=== PATIENT | female | born 1985 | race Caucasian/White ===

== ENCOUNTER → 2019-08-14 | Outpatient (CLI) | payer SELFPAY | PROVIDERS: Family Provider Nurse Practitioner Family; Visit Provider Nurse Practitioner Family | DX: D69.6 Thrombocytopenia, unspecified (principal) | CPT/HCPCS: 36415; 80500; 85007; 85027 ==

== ENCOUNTER 2020-04-03 13:58 | Outpatient (CLI) | payer MEDICAID, SELFPAY ==
--- NOTE | 2020-04-03 14:10 | XR_ITS ---
WS: [id number] EXAM: PA CHEST X-RAY WITH ABDOMINAL OBSTRUCTIVE SERIES DATE OF EXAMINATION: 04/03/2020, 1423 hours COMPARISON: Abdominal KUB from 08/20/2009 and chest x-ray from 04/07/2010 HISTORY: Patient is 34 years old with hematuria FINDINGS: Again demonstrated are postop sternotomy changes with valve replacement. Considered to be the aortic valve. Heart size and the mediastinal contour otherwise similar and within normal limits. Pulmonary v ascularity is normal. Lungs are clear of infiltrate. No effusion or pneumothorax. The bowel gas pattern is normal. Moderate amount of stool. There are findings suggesting a calcificat ion to the right of the spine possibly in the right ureter L4-5 level estimated at 4.7 mm in transver se diameter and 7 mm in vertical height. Additional suspected punctate calcification overlying the ri ght mid kidney. Calcification overlying the left kidney silhouette or course of the left ureter or di stal right ureter. XR/XR acute abdomen series [id number] IMPRESSION: Possible calcification in the right ureter L4-5 level. Additional punctate calc ification overlying the right kidney silhouette about 2 mm in size. No acute pulmonary disease. Normal bowel gas pattern with moderate amount of st ool.
== END 2020-04-03 13:59 | disposition home or self-care (01) ==
LOC: RADWPI 14:01
PROVIDERS: PCP Nurse Practitioner Family; Visit Provider Nurse Practitioner Family
DX: R31.9 Hematuria, unspecified (principal); N20.0 Calculus of kidney
CPT/HCPCS: 74022

== ENCOUNTER 2020-04-23 16:19 | Emergency (ER) | payer MEDICAID, SELFPAY ==
[2020-04-23 16:49] VITALS: BP 143/101; PULSE 66; RESP 18; TEMP 36.6; O2SAT 99; BMI 26.6
--- NOTE | 2020-04-23 17:04 | W.ED.ABDPA2 ---
Documented by User: Erik Polk DO 04/25/20 09:15 HPI - Abdominal Pain General: Chief Complaint: Abdominal Pain Stated Complaint: chest pain/abd and back pain Time Seen by Provider: 04/23/20 16:50 History of Present Illness: HPI narrative: 34-year-old female presents complaining of right upper chest pain right upper quadrant pain radiating to her back. Most of her pain starts in the right upper quadrant radiates around to the back and up into the right shoulder. She not been short of breath with it she is not had any dysuria urgency or frequency denies any fever she is not noticed anything that seems to trigger or relieve it. 2 weeks ago interestingly she had some hematuria they thought she had nephrolithiasis I did a KUB put her on some Flomax it seemed to pass and hematuria stopped they assume she had passed a stone but she never did catch 1 any urine filter. She is on Coumadin because she has a [employer]. 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 She not had any respiratory symptoms denies any exposure to COVID. MD elicited complaint: abdominal pain Pertinent past history: other (Recent possible nephrolithiasis) Onset (ago): day(s) Pain Consistency: constant Location: RUQ Quality: cramping and stabbing Radiation: other (Right shoulder) Migration to: other (The back) Exacerbating factors: nothing Relieving factors: nothing Associated Symptoms: Reports anorexia, bloating and GI cramping; Denies change in bowel habits, change in stool character, chills, coffee ground emesis, constipation, diarrhea, dyspepsia, dysuria, excessive flatus, fever(s), heartburn, hematochezia, hematuria, hematemesis, fecal incontinence, loose stools, melena, nausea, poor appetite, syncope and vomiting Review of Systems Const: Denies: fever(s) or chills ENMT: Denies: throat pain, ear or mastoid pain, nasal discharge or nasal congestion Card: Denies: syncope Resp: Denies: dyspnea, productive cough or non-productive cough GI: Reports: bloating and GI cramping; Denies: nausea, vomiting, hematemesis, coffee ground emesis, heartburn, diarrhea, constipation, excessive flatus, fecal incontinence, change in bowel habits, change in stool character, hematochezia or melena : Denies: dysuria or hematuria Skin/Breast: Denies: rash or pruritus PFSH ED PFSH: Medical History Hepatitis C Subacute bacterial endocarditis Surgical History History of History of mitral valve prosthesis St. Octavio's mechanical valve S/P endometrial ablation Social History Smoking and tobacco status: light tobacco smoker cigarettes Alcohol intake: current Alcohol intake frequency: few times a month Substance/Drug Use: former Date of last use: History of IV drug use quit several years ago Physical Exam Const: COMMON NORMALS: average body habitus, patient oriented x3 and alert GENERAL APPEARANCE: cooperative, comfortable, well kempt and well developed NUTRITIONAL APPEARANCE: obese ORIENTATION/CONSCIOUSNESS: Yes awake, Yes oriented to person and Yes oriented to place HENMT: COMMON NORMALS: normocephalic, atraumatic and EAC's normal HEAD & SCALP: normocephalic and atraumatic EXTERNAL AUDITORY CANAL: EAC's normal Eye: COMMON NORMALS: Equal, round and reactive pupils present, EOMs intact bilaterally, conjunctivae normal and no scleral icterus CONJUNCTIVA: Yes conjunctivae normal PUPIL: Yes Equal, round and reactive pupils present Neck/C-Spine: COMMON NORMALS: no meningeal signs Resp: COMMON NORMALS: normal respiratory effort, No retractions, No use of accessory muscles and clear to auscultation bilaterally AUSCULTATION: clear to auscultation bilaterally Cardio: COMMON NORMALS: regular rate and regular rhythm RATE: regular rate RHYTHM: regular rhythm HEART SOUNDS: no murmurs GI: COMMON NORMALS: Normal to inspection, nondistended, normoactive bowel sounds present, Soft to palpation and No hepatosplenomegaly present PALPATION: Yes Soft to palpation, Yes Tenderness to palpation present (GI) Details: RUQ and Yes No hepatosplenomegaly present : COMMON NORMALS: Yes no CVA tenderness BLADDER/KIDNEY EXAM: Yes no CVA tenderness Back/Pelvis: COMMON NORMALS: no CVA tenderness LUMBAR SPINE/LOWER BACK: Yes normal to inspection Extremity: COMMON NORMALS: no clubbing, cyanosis or edema, no calf tenderness and no pedal edema Neuro: COMMON NORMALS: patient oriented x3 SENSORIUM/ORIENTATION: Yes alert, Yes oriented to person and Yes oriented to place MENINGEAL SIGNS: Yes no meningeal signs Psych: APPEARANCE: Yes well kempt Skin: COMMON NORMALS: no rashes or lesions noted and turgor normal GENERAL SKIN EXAM: no rashes or lesions noted and turgor normal Course Vital Signs: Vital signs: Vital Signs Temperature 97.8 F 04/23/20 16:49 Pulse Rate 60 04/23/20 19:55 Respiratory Rate 21 H 04/23/20 19:55 Blood Pressure 125/70 04/23/20 19:55 Pulse Oximetry 97 04/23/20 19:55 MDM - Abdominal Pain MDM Narrative: Medical decision making narrative: Return to Dr. Kuo at change of shift see his notes for final diagnosis and disposition. Lab Data: Labs: Lab Results 04/23/20 04/23/20 04/23/20 Range/Units 17:13 17:13 17:13 WBC 6.9 (4.0-10.0) 10^3/ uL RBC 5.07 (4.1-5.3) 10^6/u L Hgb 15.3 (11.5-15.3) g/dL Hct 46.3 (37.0-47.0) % MCV 91.3 (81-99) fL MCH 30.2 (28.0-34.0) pg MCHC 33.0 (30.0-36.0) g/dL RDW 13.2 (12.1-15.1) % Plt Count 139 (130-400) 10^3/c mm MPV 12.5 H (7.4-10.4) fL Neut % (Auto) 62.1 % Lymph % (Auto) 25.4 % [place] % (Auto) 7.6 % Eos % (Auto) 4.2 % Baso % (Auto) 0.4 % Neut # (Auto) 4.31 (1.8-7.7) 10^3/u L Lymph # (Auto) 1.8 (0.8-4.8) 10^3/u L [place] # (Auto) 0.5 (0.2-0.9) 10^3/u L Eos # (Auto) 0.3 (0.0-0.8) 10^3/u L Baso # (Auto) 0.0 (0.0-0.1) 10^3/u L Nucleated RBC % (a uto) 0 % Nucleated RBCs # 0.0 /100WBC PT 31.00 H (12.1-14.9) SECO NDS INR 2.85 H (0.8-1.2) Sodium 136 (136-145) mmol/L Potassium 4.0 (3.5-5.1) mmol/L Chloride 103 (98-107) mmol/L Carbon Dioxide 24 (22-29) mmol/L Anion Gap 13.0 (5-19) BUN 9 (6-20) mg/dL Creatinine 0.6 (0.5-0.9) mg/dL GFR Calculation 115.9 (90-130) mL/min Glucose 99 (65-115) mg/dL Calculated Osmolal ity 278 L (285-295) mOsm/k g Calcium 9.2 (8.5-10.5) mg/dL Total Bilirubin 0.9 (0.15-1.2) mg/dL AST 24 (0-32) U/L ALT 15 (0-33) U/L Alkaline Phosphata se 90 (35-105) IU/L Total Protein 7.5 (6.6-8.7) g/dL Albumin 4.3 (3.5-5.2) g/dL Globulin 3.2 (1.3-4.6) g/dL Lipase 26 (13-60) U/L HCG, Qual (Negative) Urine Color (Yellow) Urine Appearance (CLEAR) Urine pH (5-7) Ur Specific Gravit y (1.005-1.030) Urine Protein (Negative) Urine Glucose (UA) (Normal) Urine Ketones (Negative) Urine Blood (Negative) Urine Nitrate (Negative) Urine Bilirubin (Negative) Urine Urobilinogen (Negative) mg/dL Ur Leukocyte Madina ase (Negative) 04/23/20 04/23/20 Range/Units 17:18 17:18 WBC (4.0-10.0) 10^3/ uL RBC (4.1-5.3) 10^6/u L Hgb (11.5-15.3) g/dL Hct (37.0-47.0) % MCV (81-99) fL MCH (28.0-34.0) pg MCHC (30.0-36.0) g/dL RDW (12.1-15.1) % Plt Count (130-400) 10^3/c mm MPV (7.4-10.4) fL Neut % (Auto) % Lymph % (Auto) % [place] % (Auto) % Eos % (Auto) % Baso % (Auto) % Neut # (Auto) (1.8-7.7) 10^3/u L Lymph # (Auto) (0.8-4.8) 10^3/u L [place] # (Auto) (0.2-0.9) 10^3/u L Eos # (Auto) (0.0-0.8) 10^3/u L Baso # (Auto) (0.0-0.1) 10^3/u L Nucleated RBC % (a uto) % Nucleated RBCs # /100WBC PT (12.1-14.9) SECO NDS INR (0.8-1.2) Sodium (136-145) mmol/L Potassium (3.5-5.1) mmol/L Chloride (98-107) mmol/L Carbon Dioxide (22-29) mmol/L Anion Gap (5-19) BUN (6-20) mg/dL Creatinine (0.5-0.9) mg/dL GFR Calculation (90-130) mL/min Glucose (65-115) mg/dL Calculated Osmolal ity (285-295) mOsm/k g Calcium (8.5-10.5) mg/dL Total Bilirubin (0.15-1.2) mg/dL AST (0-32) U/L ALT (0-33) U/L Alkaline Phosphata se (35-105) IU/L Total Protein (6.6-8.7) g/dL Albumin (3.5-5.2) g/dL Globulin (1.3-4.6) g/dL Lipase (13-60) U/L HCG, Qual Negative (Negative) Urine Color Yellow (Yellow) Urine Appearance Clear (CLEAR) Urine pH 6.0 (5-7) Ur Specific Gravit y 1.010 (1.005-1.030) Urine Protein Neg (Negative) Urine Glucose (UA) Norm (Normal) Urine Ketones Negative (Negative) Urine Blood Neg (Negative) Urine Nitrate Negative (Negative) Urine Bilirubin Neg (Negative) Urine Urobilinogen Norm (Negative) mg/dL Ur Leukocyte Madina ase Negative (Negative) Discharge Plan Discharge Patient Disposition: Home Clinical Impression: Abdominal pain Qualifiers: Abdominal location: generalized Qualified Code(s): R10.84 - Generalized abdominal pain Condition: Stable Prescriptions: New Protonix 40 mg tablet,delayed release (DR/EC) 40 mg PO DAILY Qty: 30 RF: 0 No Action citalopram 20 mg tablet 20 mg PO DAILY RF: 0 warfarin 5 mg tablet See Rx Instructions .ROUTE .COMPLEX RF: 0 Multiple Vitamin-Minerals Tablet 1 tab PO DAILY RF: 0 Discharge Orders: Discharge Order (Routine); Ordered 04/23/20 Ordered By: Lv Kuo Referrals: Gabi Duran APN [Primary Care Provider] - Miky Logan MD [Physician] - 1-3 days Discharge Diet: Advance as tolerated Discharge Activity: Resume usual activity Patient Instructions: Abdominal Pain (ED) Discharge Date/Time: 04/23/20 19:55 Coding Level of Care Code ED Dispatcher Service for Chg Fwd Exam Comprehensive Documented by User: Lv Kuo MD 04/23/20 19:49 HPI - Abdominal Pain General: Chief Complaint: Abdominal Pain Stated Complaint: chest pain/abd and back pain Time Seen by Provider: 04/23/20 16:50 PFSH ED PFSH: Medical History Hepatitis C Subacute bacterial endocarditis Surgical History History of History of mitral valve prosthesis St. Octavio's mechanical valve S/P endometrial ablation Social History Smoking and tobacco status: light tobacco smoker cigarettes Alcohol intake: current Alcohol intake frequency: few times a month Substance/Drug Use: former Date of last use: History of IV drug use quit several years ago Course Vital Signs: Vital signs: Vital Signs Temperature 97.8 F 04/23/20 16:49 Pulse Rate 60 04/23/20 19:55 Respiratory Rate 21 H 04/23/20 19:55 Blood Pressure 125/70 04/23/20 19:55 Pulse Oximetry 97 04/23/20 19:55 MDM - Abdominal Pain MDM Narrative: Medical decision making narrative: Patient presents here with abdominal pain blood work here is normal and she has a normal ultrasound as well. Pain is improved. We will place her on Protonix and her follow-up with surgery. Patient is stable for discharge and is to follow-up with PCP in 3 to 5 days return if worsening. Lab Data: Labs: Lab Results 04/23/20 04/23/20 04/23/20 Range/Units 17:13 17:13 17:13 WBC 6.9 (4.0-10.0) 10^3/ uL RBC 5.07 (4.1-5.3) 10^6/u L Hgb 15.3 (11.5-15.3) g/dL Hct 46.3 (37.0-47.0) % MCV 91.3 (81-99) fL MCH 30.2 (28.0-34.0) pg MCHC 33.0 (30.0-36.0) g/dL RDW 13.2 (12.1-15.1) % Plt Count 139 (130-400) 10^3/c mm MPV 12.5 H (7.4-10.4) fL Neut % (Auto) 62.1 % Lymph % (Auto) 25.4 % [place] % (Auto) 7.6 % Eos % (Auto) 4.2 % Baso % (Auto) 0.4 % Neut # (Auto) 4.31 (1.8-7.7) 10^3/u L Lymph # (Auto) 1.8 (0.8-4.8) 10^3/u L [place] # (Auto) 0.5 (0.2-0.9) 10^3/u L Eos # (Auto) 0.3 (0.0-0.8) 10^3/u L Baso # (Auto) 0.0 (0.0-0.1) 10^3/u L Nucleated RBC % (a uto) 0 % Nucleated RBCs # 0.0 /100WBC PT 31.00 H (12.1-14.9) SECO NDS INR 2.85 H (0.8-1.2) Sodium 136 (136-145) mmol/L Potassium 4.0 (3.5-5.1) mmol/L Chloride 103 (98-107) mmol/L Carbon Dioxide 24 (22-29) mmol/L Anion Gap 13.0 (5-19) BUN 9 (6-20) mg/dL Creatinine 0.6 (0.5-0.9) mg/dL GFR Calculation 115.9 (90-130) mL/min Glucose 99 (65-115) mg/dL Calculated Osmolal ity 278 L (285-295) mOsm/k g Calcium 9.2 (8.5-10.5) mg/dL Total Bilirubin 0.9 (0.15-1.2) mg/dL AST 24 (0-32) U/L ALT 15 (0-33) U/L Alkaline Phosphata se 90 (35-105) IU/L Total Protein 7.5 (6.6-8.7) g/dL Albumin 4.3 (3.5-5.2) g/dL Globulin 3.2 (1.3-4.6) g/dL Lipase 26 (13-60) U/L HCG, Qual (Negative) Urine Color (Yellow) Urine Appearance (CLEAR) Urine pH (5-7) Ur Specific Gravit y (1.005-1.030) Urine Protein (Negative) Urine Glucose (UA) (Normal) Urine Ketones (Negative) Urine Blood (Negative) Urine Nitrate (Negative) Urine Bilirubin (Negative) Urine Urobilinogen (Negative) mg/dL Ur Leukocyte Madina ase (Negative) 04/23/20 04/23/20 Range/Units 17:18 17:18 WBC (4.0-10.0) 10^3/ uL RBC (4.1-5.3) 10^6/u L Hgb (11.5-15.3) g/dL Hct (37.0-47.0) % MCV (81-99) fL MCH (28.0-34.0) pg MCHC (30.0-36.0) g/dL RDW (12.1-15.1) % Plt Count (130-400) 10^3/c mm MPV (7.4-10.4) fL Neut % (Auto) % Lymph % (Auto) % [place] % (Auto) % Eos % (Auto) % Baso % (Auto) % Neut # (Auto) (1.8-7.7) 10^3/u L Lymph # (Auto) (0.8-4.8) 10^3/u L [place] # (Auto) (0.2-0.9) 10^3/u L Eos # (Auto) (0.0-0.8) 10^3/u L Baso # (Auto) (0.0-0.1) 10^3/u L Nucleated RBC % (a uto) % Nucleated RBCs # /100WBC PT (12.1-14.9) SECO NDS INR (0.8-1.2) Sodium (136-145) mmol/L Potassium (3.5-5.1) mmol/L Chloride (98-107) mmol/L Carbon Dioxide (22-29) mmol/L Anion Gap (5-19) BUN (6-20) mg/dL Creatinine (0.5-0.9) mg/dL GFR Calculation (90-130) mL/min Glucose (65-115) mg/dL Calculated Osmolal ity (285-295) mOsm/k g Calcium (8.5-10.5) mg/dL Total Bilirubin (0.15-1.2) mg/dL AST (0-32) U/L ALT (0-33) U/L Alkaline Phosphata se (35-105) IU/L Total Protein (6.6-8.7) g/dL Albumin (3.5-5.2) g/dL Globulin (1.3-4.6) g/dL Lipase (13-60) U/L HCG, Qual Negative (Negative) Urine Color Yellow (Yellow) Urine Appearance Clear (CLEAR) Urine pH 6.0 (5-7) Ur Specific Gravit y 1.010 (1.005-1.030) Urine Protein Neg (Negative) Urine Glucose (UA) Norm (Normal) Urine Ketones Negative (Negative) Urine Blood Neg (Negative) Urine Nitrate Negative (Negative) Urine Bilirubin Neg (Negative) Urine Urobilinogen Norm (Negative) mg/dL Ur Leukocyte Madina ase Negative (Negative) Discharge Plan Discharge Patient Disposition: Home Clinical Impression: Abdominal pain Qualifiers: Abdominal location: generalized Qualified Code(s): R10.84 - Generalized abdominal pain Condition: Stable Prescriptions: New Protonix 40 mg tablet,delayed release (DR/EC) 40 mg PO DAILY Qty: 30 RF: 0 No Action citalopram 20 mg tablet 20 mg PO DAILY RF: 0 warfarin 5 mg tablet See Rx Instructions .ROUTE .COMPLEX RF: 0 Multiple Vitamin-Minerals Tablet 1 tab PO DAILY RF: 0 Discharge Orders: Discharge Order (Routine); Ordered 04/23/20 Ordered By: Lv Kuo Referrals: Gabi Duran APN [Primary Care Provider] - Miky Logan MD [Physician] - 1-3 days Discharge Diet: Advance as tolerated Discharge Activity: Resume usual activity Patient Instructions: Abdominal Pain (ED) Discharge Date/Time: 04/23/20 19:55 Coding Level of Care Code ED Dispatcher Service for Chg Fwd Exam Comprehensive
[2020-04-23 17:18] LABS: Basophils % 0.4 %; Eosinophils # 0.3 10^3/uL (0.0-0.8); Eosinophils % 4.2 %; Hematocrit 46.3 % (37.0-47.0); Hemoglobin 15.3 g/dL (11.5-15.3); Lymphocytes # 1.8 10^3/uL (0.8-4.8); Lymphocytes % 25.4 %; Mean Corpuscular Hemoglobin 30.2 pg (28.0-34.0); Mean Corpuscular Volume 91.3 fL (81-99); Mean Platelet Volume 12.5 fL (7.4-10.4); Monocytes # 0.5 10^3/uL (0.2-0.9); Monocytes % 7.6 %; Neutrophils # 4.31 10^3/uL (1.8-7.7); Neutrophils % 62.1 %; Nucleated Red Blood Cells % 0 %; Platelet Count 139 10^3/cmm (130-400); Red Blood Count 5.07 10^6/uL (4.1-5.3); Red Cell Distribution Width 13.2 % (12.1-15.1); White Blood Count 6.9 10^3/uL (4.0-10.0)
[2020-04-23 17:26] LABS: Add Urine Microscopic? NO
[2020-04-23 17:28] LABS: Bilirubin Urine Neg (Negative); Blood Urine Neg (Negative); Glucose Urine UA Norm (Normal); Ketones Urine Negative (Negative); Leukocyte Esterase Urine Negative (Negative); Nitrate Urine Negative (Negative); Protein Urine Neg (Negative); Urine Appearance Clear (CLEAR); Urine Color Yellow (Yellow); Urobilinogen Urine Norm (Negative)
[2020-04-23 17:38] LABS: Alanine Aminotransferase 15 U/L (0-33); Albumin Level 4.3 g/dL (3.5-5.2); Alkaline Phosphatase 90 IU/L (35-105); Aspartate Amino Transferase 24 U/L (0-32); Blood Urea Nitrogen 9 mg/dL (6-20); Calcium 9.2 mg/dL (8.5-10.5); Carbon Dioxide 24 mmol/L (22-29); Chloride 103 mmol/L (98-107); Globulin 3.2 g/dL (1.3-4.6); Glomerular Filtration Rate 115.9 mL/min (90-130); Glucose 99 mg/dL (65-115); Lipase 26 U/L (13-60); Osmolality Calculated 278 mOsm/kg (285-295); Sodium 136 mmol/L (136-145); Total Bilirubin 0.9 mg/dL (0.15-1.2); Total Protein 7.5 g/dL (6.6-8.7)
--- NOTE | 2020-04-23 17:38 | USR_ITS ---
PROCEDURE INFORMATION: Exam: US Abdomen, Limited; Right Upper Quadrant Exam date and time: 04/23/2020 7:09 PM Age: 34 years old Clinical indication: Abdominal pain; Acute; Additional info: Ruq pain TECHNIQUE: Imaging protocol: US abdomen. Real time ultrasound with image documentation. Limited exam focused on the right upper quadrant. COMPARISON: CT Abdomen/Pelvis Renal [id number] 02/26/2015 7:47 PM FINDINGS: Liver: The liver is unremarkable. Gallbladder: The gallbladder is unremarkable. No gallstones or intraluminal sludge. No gallbladder wall thickening. No pericholecystic fluid. Sonographic Jones's sign is negative per report from the staff nuclear medicine technologist. Common bile duct: Unremarkable as visualized. No stones. No dilatation. Pancreas: The pancreas is unremarkable. No pancreatic ductal dilatation. Right kidney: The right kidney is unremarkable. Aorta: Visualized aorta is unremarkable. Portal venous: Hepatopetal flow in the portal vein. Inferior vena cava: Visualized IVC is unremarkable. Intraperitoneal space: No ascites. US/US gall bladder [id number] IMPRESSION: Unremarkable right upper quadrant ultrasound.
--- NOTE | 2020-04-23 17:40 | XR_ITS ---
WS: [id number] Portable AP upright chest, 04/23/2020 Clinical Data: dyspnea/cough Comparison: Portable chest, 04/07/2010. Findings: No nodules, masses or effusions are seen. The heart is slightly enlarged. The pulmonary vas cularity is not increased. No pneumonia or pneumothorax is seen. The patient has had cardiac valve re placement with midline sternotomy sutures. XR/XR chest 1V portable [id number] Impression: Cardiomegaly and cardiac valve replacement.
[2020-04-23 17:46] LABS: INR 2.85 (0.8-1.2)
[2020-04-23 17:52] VITALS: BP 115/66; PULSE 56; RESP 15; O2SAT 98
[2020-04-23] MEDS: sodium chloride 0.9% 1,000 ML 999 ML IV (17:53)
[2020-04-23] MEDS: ondansetron 2 mg/ML SDV 2 mL 4 MG IVP (18:10)
[2020-04-23] MEDS: morphine 4 mg/mL SDV 1 mL IVP (18:11)
[2020-04-23 19:04] VITALS: BP 128/80; PULSE 56; RESP 19; O2SAT 97
[2020-04-23 19:16] LABS: HCG Qualitative Urine. Negative (Negative)
[2020-04-23 19:46] VITALS: BP 125/70; PULSE 63; RESP 17; O2SAT 100
[2020-04-23 19:55] VITALS: BP 125/70; PULSE 60; RESP 21; O2SAT 97
--- NOTE | 2020-04-25 09:00 | DCPLANNER ---
youth manager had message to schedule a follow up appointment for patient with Dr. Logan. youth manager called the office of Dr. Logan, spoke with Ericka, gave clinic patients information. A follow up appointment was scheduled for Wednesday, May 20, 2020 at 9:[address] Logan. Clinic will call patient with appointment information, returned case inspector faxed patients information to the clinic.
--- NOTE | 2020-05-27 11:35 | DCPLANNER ---
Patient had a follow up appointment scheduled for 05.20.[address] Logan - appointment was rescheduled.
== END 2020-04-23 19:55 | disposition home or self-care (01) ==
PROVIDERS: Family Medicine; Emergency Provider Emergency Medicine; PCP Nurse Practitioner Family
DX: R10.84 Generalized abdominal pain (principal); Z79.01 Long term (current) use of anticoagulants; Z86.19 Personal history of other infectious and parasitic diseases; F17.210 Nicotine dependence, cigarettes, uncomplicated
CPT/HCPCS: 12345; 36415; 71045; 76705; 80053; 81003; 81025; 83690; 85025; 85610; 96361; 96374; 96375; 99283; 99284; J2270; J2405; J7030

== ENCOUNTER 2020-05-05 08:33 | Outpatient (CLI) | payer MEDICAID, SELFPAY ==
--- NOTE | 2020-05-05 07:30 | XRR_ITS ---
PROCEDURE INFORMATION: Exam: XR Abdomen, 1 View Exam date and time: 05/05/2020 8:50 AM Age: 34 years old Clinical indication: Condition or disease; Kidney or ureter condition; Calculus (stone) in kidney; Prior surgery; Surgery type: Open heart 10 years ago; Additional info: Kidney stone TECHNIQUE: Imaging protocol: XR of the abdomen. Views: Frontal supine view of the abdomen. 1 View. COMPARISON: 1. CR XR acute abdomen series [id number] 04/03/2020 2:[address] Abdomen/Pelvis Renal [id number] 02/26/2015 7:47:28 PM FINDINGS: Gastrointestinal tract: There is mildly increased stool noted in the ascending and transverse colon. Organs: Right renal lower pole 6.6 mm calyceal calculus. Bones/joints: No acute abnormality identified. XR/XR KUB [id number] IMPRESSION: 1. Right renal calyceal lithiasis. 2. Mild abdominal colonic constipation.
== END 2020-05-05 08:34 | disposition home or self-care (01) ==
LOC: RAD 08:37
PROVIDERS: PCP Nurse Practitioner Family; Visit Provider Nurse Practitioner Family
DX: N20.0 Calculus of kidney (principal); K59.00 Constipation, unspecified
CPT/HCPCS: 74018; 80053; 81001; 88112

== ENCOUNTER 2020-05-08 11:09 | Outpatient (CLI) | payer MEDICAID, SELFPAY ==
--- NOTE | 2020-05-08 12:30 | CT_ITS ---
WS: [id number] CT ABDOMEN PELVIS TECHNIQUE: Noncontrast CT of the abdomen and contrast-enhanced CT of the abdomen and pelvis with tutu nal and sagittal reformatted images. CLINICAL INFORMATION: GROSS HEMATURIA COMPARISON: 02 26,015 DLP: 2233.[address] scans at [facility] use at least one of these dose optimization techniques: automat ed exposure control; mA and/or kV adjustment per patient size (includes targeted exams where dose is matched to clinical indication); or iterative reconstruction. FINDINGS: Liver is normal in appearance. Normal portal vein and splenic vein. Gallbladder is contracted. Normal spleen. Lung bases are well aerated. Normal visualized pancreas. Normal GE junction. Adrenal glands are normal. Normal renal parenchymal enhancement. No hydronephrosis. Right renal pelvi c calculus measuring 4.6 mm without evidence of obstruction. Mild dilatation of the right proximal an d mid ureter which appears decompressed distally. A few tiny right calyceal tip nonobstructing calcul i. No left renal parenchymal or ureteral calculi. Bilateral ovarian cysts the largest in the right measuring 3.1 x 2.3 cm. This can be followed up with ultrasound. Normal corticomedullary phase. Normal left ureteral excretion. Normal right ureteral excretion into t he mid ureter. No visualized contrast in distal right ureter. This may be partially obstructed by the lobulated right ovarian cyst. Normal bladder filling. Normal sigmoid colon. No evidence of small or large bowel obstruction. Lung bases are well aerated. M ild lumbar curve convex left. CT/CT abdomen pelvis wo/w [id number] IMPRESSION: 1. 4.6 mm right renal pelvic calculus without evidence of obstruction. No hydr onephrosis. Mild dilatation of the right proximal and mid ureter may be due to recently passed calculus or partial obstruction by the right ovarian cyst. 2. Normal cortical medullary phase and normal excretion. Normal filling of the bladder. No significant contrast in the right distal ureter although it appear s normal caliber. 3. Lobulated right ovarian cyst measuring 3.1 x 2.3 cm. This is near the right UVJ and may be compressing the right ureter. 4. No other significant findings.
== END 2020-05-08 11:10 | disposition home or self-care (01) ==
LOC: CT 11:10
PROVIDERS: PCP Nurse Practitioner Family; Visit Provider Nurse Practitioner Family
DX: R31.0 Gross hematuria (principal); N20.0 Calculus of kidney; N83.201 Unspecified ovarian cyst, right side
CPT/HCPCS: 74178; 81001; Q9967

== ENCOUNTER 2020-05-23 08:37 | Outpatient (CLI) | payer MEDICAID, SELFPAY ==
--- NOTE | 2020-05-23 08:15 | XR_ITS ---
WS: [id number] KUB, 05/23/2020 Clinical Data: RENAL STONE Comparison: KUB, 05/05/2020. Findings: The calcification overlying the right kidney appears to be smaller today. No left renal calculus is s een. Both kidneys are slightly obscured by overlying bowel gas. The pelvis shows no calcifications. T he bladder is partly full. XR/XR KUB [id number] Impression: 1. Right renal calcification appears to be smaller. 2. No definite left renal, ureteral or true pelvic calcifications.
== END 2020-05-23 08:38 | disposition home or self-care (01) ==
LOC: RAD 08:39
PROVIDERS: PCP Nurse Practitioner Family; Visit Provider Urology
DX: N20.0 Calculus of kidney (principal)
CPT/HCPCS: 74018; 81001

== ENCOUNTER 2021-03-07 17:17 | Outpatient (CLI) | payer MEDICAID, SELFPAY ==
--- NOTE | 2021-03-07 17:29 | XRR_ITS ---
PROCEDURE INFORMATION: Exam: XR Left Ribs with PA Chest Exam date and time: 03/07/2021 5:29 PM Age: 35 years old Clinical indication: Prior surgery; Surgery date: 6+ months; Surgery type: Valve; Patient HX: C/O L posterior lateral rib pain w/o injury; Additional info: Left rib pain TECHNIQUE: Imaging protocol: XR Left ribs with PA chest. Views: 3 views COMPARISON: CR XR chest 1V portable [id number] 04/23/2020 5:42 PM FINDINGS: Lungs: Unremarkable. No consolidation. Pleural spaces: Unremarkable. No pleural effusion. No pneumothorax. Heart/Mediastinum: Unremarkable. No cardiomegaly. Bones/joints: There are posterior sternotomy changes and postoperative changes overlying the mediastinum. Minimal lateral curvature of the thoracic spine with the convexity to the right. XR/XR ribs LT mn 3V w CXR1V [id number] IMPRESSION: No evidence for acute fracture.
== END 2021-03-07 17:18 | disposition home or self-care (01) ==
PROVIDERS: Visit Provider Nurse Practitioner Family
DX: R07.81 Pleurodynia (principal)
CPT/HCPCS: 71101; 81000

== ENCOUNTER → 2021-06-16 16:27 | Outpatient (BNVA) | payer MEDICAID, SELFPAY | PROVIDERS: Visit Provider Nurse Practitioner Family | DX: R63.5 Abnormal weight gain (principal) | CPT/HCPCS: 80053; 80061; 84443; 85025 ==

== ENCOUNTER 2021-08-20 09:10 | Outpatient (CLI) | payer MEDICAID, SELFPAY ==
[2021-08-20 09:27] VITALS: BP 139/81; PULSE 57; RESP 16; TEMP 36.3; O2SAT 97; BMI 31.6
[2021-08-20 09:41] VITALS: BP 139/81; PULSE 57; RESP 16; TEMP 36.3; O2SAT 97; BMI 31.6
[2021-08-20 09:59] VITALS: BP 129/93; PULSE 54; RESP 16; TEMP 36.7; O2SAT 97
[2021-08-20 10:56] VITALS: BP 137/91; PULSE 52; RESP 16; TEMP 36.8; O2SAT 97
== END 2021-08-20 09:11 | disposition home or self-care (01) ==
LOC: OPS 09:13
PROVIDERS: PCP Nurse Practitioner Family; Visit Provider Nurse Practitioner Family
DX: U07.1 COVID-19 (principal)
CPT/HCPCS: 96365

== ENCOUNTER 2022-03-03 07:10 | Outpatient (CLI) | payer MEDICAID, SELFPAY ==
--- NOTE | 2022-03-03 13:41 | PFTS_ITS ---
Date of Study:03/03/22 Date of Dictation: MECHANICS: Forced vital capacity (FVC) is normal. Forced expiratory volume in one second (FEV1) is normal. FEV1/FVC is normal. FLOW VOLUME LOOP: Normal. LUNG VOLUMES: Total lung capacity (TLC) is normal. Residual volume (RV) is normal. DIFFUSING CAPACITY FOR CARBON MONOXIDE: Normal. INTERPRETATION: The prebronchodilator spirometry is consistent with moderate airflow obstruction. The postbronchodilator spirometry is normal. There is a significant postbronchodilator response. Lung volumes are normal. Gas exchange (DLCO) is normal. The constellation of pulmonary function tests are consistent with reversible small airways disease such as asthma. MTDD
== END 2022-03-03 07:11 | disposition home or self-care (01) ==
LOC: RT 07:11
PROVIDERS: PCP Nurse Practitioner Family; Visit Provider Internal Medicine
DX: R91.1 Solitary pulmonary nodule (principal); Z01.818 Encounter for other preprocedural examination
CPT/HCPCS: 94060; 94726; 94729; J7614

== ENCOUNTER 2022-03-22 15:06 | Outpatient (CLI) | payer MEDICAID, SELFPAY ==
--- NOTE | 2022-03-22 15:15 | USCV_ITS ---
Xiomara Pearson Age: 36 Gender: F : 1985 Exam Date: 03/22/2022 15:49 Ordering Phys: Michelle Retana MD Technologist: Pasclae Perez Exam Location: [facility] [place] Indication: sob, cp, 2010 - tilting disc mechanical MV BP: / HR: 89 Rhythm: Sinus Technical Quality: Adequate MEASUREMENTS (Male / Female) Normal Values 2D ECHO LV Diastolic Diameter PLAX 4.0 cm 4.2 - 5.9 / 3.9 - 5.3 cm LV Systolic Diameter PLAX 2.9 cm IVS Diastolic Thickness 0.9 cm 0.6 - 1.0 / 0.6 - 0.9 cm IVS Systolic Thickness 1.2 cm LVPW Diastolic Thickness 0.8 cm 0.6 - 1.0 / 0.6 - 0.9 cm LVPW Systolic Thickness 1.0 cm LVOT Diameter 2.0 cm LV Ejection Fraction 2D Teich 51.7 % LV Ejection Fraction MOD 2C 79.9 % LV Ejection Fraction 2C AL 79.6 % LA Diameter 3.6 cm LA Width 3.1 cm LA Height 5.1 cm RA Width 4.3 cm RA Height 4.8 cm Aorta at Sinotubular Diameter 2.5 cm IVC Diameter 1.6 cm DOPPLER AV Peak Velocity 137.3 cm/s LVOT Peak Velocity 96.0 cm/s AV Area Cont Eq vti 2.4 cm squared AV Area Cont Eq pk 2.2 cm squared MV Peak Velocity 197.0 cm/s MV Area PHT 2.1 cm squared Mitral E to A Ratio 1.1 MV E' Velocity 83.5 cm/s Mitral E to MV E' Ratio 17.5 Mitral E to LV E' Lateral Ratio 17.7 Mitral E to LV E' Septal Ratio 17.3 TR Peak Velocity 236.5 cm/s TR Peak Gradient 22.4 mmHg Right Atrial Pressure 3.0 mmHg Pulmonary Artery Systolic Pressu 25.4 mmHg PV Peak Velocity 83.0 cm/s RV Acceleration Time 0.1 s RV Ejection Time 0.3 s RV AcT/ET 0.4 FINDINGS Left Ventricle Left ventricle is normal in size. LV systolic function is normal with EF of 50 to 55%. No regional wall motion abnormalities seen. Right Ventricle Normal in function and size. Right Atrium Normal in size Left Atrium Normal in size Mitral Valve Mechanical mitral valve is seen. Not very well visualized however is thickened. Mild mitral regurgitation. Moderately elevated pressures across mitral valve. Mean gradient across mitral valve is 7.3 mmHg. Aortic Valve Aortic valve is grossly normal. No significant aortic stenosis. Mild aortic regurgitation is seen. Tricuspid Valve Mild tricuspid regurgitation. Normal pulmonary artery systolic pressure. Pulmonic Valve Not well-visualized. Trace pulmonic regurgitation. Pericardium Normal Aorta Normal in size IVC CONCLUSIONS LV systolic function is normal with EF of 50 to 55%. Mechanical mitral valve is seen .Not very well visualized but is thickened. Mild mitral regurgitation. Moderately elevated pressure across mitral valve. Mean gradient across the mitral valve is 7.3 mmHg. Mild aortic regurgitation noted. Mild tricuspid regurgitation is seen. Trace pulmonic regurgitation. Compared to prior echocardiogram from 2014, mean gradient across mitral valve has moderately increased and is 7.3 mmHg now. Dejon Estes MD (Electronically Signed) Final Date: 27 March 2022 14:09 S
== END 2022-03-22 15:07 | disposition home or self-care (01) ==
LOC: RAD 15:06
PROVIDERS: PCP Nurse Practitioner Family; Visit Provider Internal Medicine Interventional Cardiology
DX: R06.02 Shortness of breath (principal); R07.89 Other chest pain; R91.1 Solitary pulmonary nodule; I08.3 Combined rheumatic disorders of mitral, aortic and tricuspid valves
CPT/HCPCS: 93306

== ENCOUNTER 2022-05-27 09:50 | Outpatient (CLI) | payer MEDICAID, SELFPAY ==
--- NOTE | 2022-05-27 10:00 | NM_ITS ---
WS: [id number] NUCLEAR MEDICINE HIDA SCAN WITH GALLBLADDER EJECTION FRACTION HISTORY: abdominal pain COMPARISON: None available. TECHNIQUE: The patient was intravenously injected with 7.8 mCi of TC99m Mebrofenin. Immediate imaging over the right upper quadrant was followed by 5 minute image and additional images for a total of 60 minutes. Normal uptake of radiotracer throughout the liver. Activity identified in the gallbladder at 15 minutes and well distended by 60 minutes. Activity in the proximal small bowel was seen by 40 minutes. Good washout of the radiotracer from the liver by 60 minutes. The patient then drank 8 ounces of Ensure Plus. Ejection fraction at 60 minutes was 65%. Normal GB ej ection fraction is 35-75%. Post fatty meal symptoms: None. NM/NM hepatobiliary w phar* [id number] IMPRESSION: 1. Normal HIDA scan. 2. Normal gallbladder ejection fraction.
== END 2022-05-27 09:51 | disposition home or self-care (01) ==
LOC: RAD 09:52
PROVIDERS: PCP Nurse Practitioner Family; Visit Provider Surgery
DX: R10.9 Unspecified abdominal pain (principal)
CPT/HCPCS: 78227; A9537

== ENCOUNTER 2022-06-25 15:11 | Outpatient (CLI) | payer MEDICAID, SELFPAY ==
[2022-06-25 15:54] LABS: Basophils % 0.4 %; Eosinophils # 0.1 10^3/uL (0.0-0.8); Eosinophils % 1.5 %; Hematocrit 41.2 % (37.0-47.0); Hemoglobin 13.3 g/dL (11.5-15.3); Lymphocytes # 1.7 10^3/uL (0.8-4.8); Lymphocytes % 22.1 %; Mean Corpuscular HGB Conc 32.3 g/dL (30.0-36.0); Mean Corpuscular Hemoglobin 29.4 pg (28.0-34.0); Mean Corpuscular Volume 91.2 fl (81-99); Mean Platelet Volume 12.3 fL (7.4-10.4); Monocytes # 0.7 10^3/uL (0.2-0.9); Monocytes % 8.4 %; Neutrophils # 5.28 10^3/uL (1.8-7.7); Neutrophils % 67.3 %; Nucleated Red Blood Cells % 0 %; Platelet Count 171 10^3/cmm (130-400); Red Blood Count 4.52 10^6/uL (4.1-5.3); Red Cell Distribution Width 13.3 % (12.1-15.1); White Blood Count 7.8 10^3/uL (4.0-10.0)
[2022-06-25 16:12] LABS: Alanine Aminotransferase 11 U/L (0-33); Alkaline Phosphatase 94 U/L (35-105); Anion Gap 15.3 (5-19); Aspartate Amino Transferase 16 U/L (0-32); Blood Urea Nitrogen 10 mg/dL (6-20); Calcium 9.2 mg/dL (8.5-10.5); Carbon Dioxide 25 mmol/L (22-29); Chloride 99 mmol/L (98-107); Globulin 3.1 g/dL (1.3-4.6); Glomerular Filtration Rate 81.6 mL/min (90-130); Glucose 87 mg/dL (65-115); Osmolality Calculated 278 mOsm/kg (285-295); Potassium 4.3 mmol/L (3.5-5.1); Sodium 135 mmol/L (136-145); Total Bilirubin 0.8 mg/dL (0.15-1.2); Total Protein 7.1 g/dL (6.6-8.7)
== END 2022-06-25 15:12 | disposition home or self-care (01) ==
LOC: LAB 15:14
PROVIDERS: PCP Nurse Practitioner Family; Visit Provider Surgery
DX: Z01.89 Encounter for other specified special examinations (principal)
CPT/HCPCS: 36415; 80053; 85025

== ENCOUNTER 2022-06-29 06:34 | Day surgery (SDC) | payer MEDICAID, SELFPAY ==
[2022-06-29] VITALS (14 sets, daily range): BP systolic 126–166; BP diastolic 63–104; PULSE 52–75; RESP 16–20; TEMP 36.1–36.5; O2SAT 95–100
[2022-06-29] MEDS: acetaminophen 1,000 MG/100 ML PIGGYBACK 400 MG IV (07:04)
[2022-06-29] MEDS: sodium chloride 0.9% 1,000 ML 30 ML IV (07:04)
--- NOTE | 2022-06-29 07:30 | ANES.PREANE2 ---
Pre-Anesthetic Assessment Height/Weight: Height 1.65 m Weight 79.379 kg Temp Pulse Resp BP Pulse Ox O2 Del Method 97.7 F 57 L 18 126/81 97 06/29/22 07:00 06/29/22 07:00 06/29/22 07:00 06/29/22 07:00 06/29/22 07:00 06/29/22 07:00 Preop Diagnosis: Biliary dysfunction Operation Date: 06/29/22 08:05 Proposed Procedures p Laparoscopic Cholecystectomy 42269,R10.11(Not Applicable) - Reilly Ziegler MD Familial anesthetic complications: None Was Beta Sancho taken within 24 hours: N/A Was Clonidine taken within 24 hours: N/A Last intake: Intake Last Liquid Date 06/28/22 Last Liquid Time 21:00 Last Solid Date 06/28/22 Last Solid Time 19:00 Social No alcohol and No tobacco Exam alert, oriented x 3, clear to auscultation bilaterally and regular rate & rhythm Airway Mallampati: Class II Dentition: other (bridge) Pulmonary Asthma (usually only has issues when she get URI) CV/HEM vinay valve replacement Anesthetic Plan ASA status: 2 Anesthesia: General Risk of > 500 ml blood loss (7ml/kg in children): No Medications/Allergies Home Medications Medication Instructions Recorded Confirmed Last Taken Type multivitamin with minerals 1 tab PO DAILY 04/23/20 06/28/22 06/25/22 History (Multiple Vitamin-Minerals tablet) warfarin 5 mg tablet 10 mg PO DAILY 04/23/20 06/28/22 06/23/22 History pen needle, diabetic 33 gauge x #100 ea 10/30/21 06/13/22 Unknown Rx liraglutide 0.6 mg/0.1 mL (18 mg/3 1.2 mg (0.2 mL) SUBCUT .COMPLEX #9 05/17/22 06/28/22 06/25/22 Rx mL) subcutaneous pen injector mL (Victoza 3-Hayder) bupropion HCl 150 mg tablet,12 hr 150 mg PO BID #60 tabs 06/11/22 06/28/22 06/28/22 Rx sustained-release (Wellbutrin SR) albuterol sulfate 90 mcg/actuation 2 puff inhalation Q4-5H shortness 06/29/22 06/29/22 06/28/22 History aerosol inhaler (ProAir HFA) of breath alprazolam 0.25 mg tablet (Xanax) 0.25 mg PO DAILY PRN Anxiety 06/29/22 06/29/22 1 Week Ago History ~06/22/22 enoxaparin 80 mg/0.8 mL 80 mg SUBCUT BID 06/29/22 06/29/22 06/28/22 07:00 History subcutaneous syringe (Lovenox) Allergies Allergy/AdvReac Type Severity Reaction Status Date / Time No Known Allergies Allergy Verified 06/13/22 08:50 Current Medications Generic Name Dose Route Start Last Admin Trade Name Freq PRN Reason Stop Dose Admin Sodium Chloride 1,000 mls @ 30 mls/hr 06/29/22 06:45 06/29/22 07:04 Sodium Chloride 0.9% IV 06/30/22 06:44 30 mls/hr .Q24H FLORES Administration PFSH Anesthesia Medical History Gross hematuria Hepatitis C Overweight (BMI 25.0-29.9) Recurrent UTI Right renal stone Subacute bacterial endocarditis Surgical History History of History of mitral valve prosthesis [employer]. Octavio's mechanical valve S/P endometrial ablation Family History Other Diabetes Social History Smoking and tobacco status: former smoker Second hand smoke exposure: No Smoking risk assessment/counseling performed?: Yes Alcohol intake: current Alcohol intake frequency: few times a month Desire information about alcohol rehabilitation?: No Counseling given: No Desire information about substance/drug rehabilitation?: No Counseling given: No Adopted: No Caregiver/support person: No Lives independently: No Household members: spouse Housing: House Marital status: Number of children: 3 service: No Current occupational status: employed Current occupation: [employer] History of recent travel: No Current gender identity: Female Data Anesthesia Coags 06/29/22 07:00 PT 13.50 INR 1.00 Cardiac Studies: Echocardiogram 03/22/22
--- NOTE | 2022-06-29 07:47 | W.PM.OPSFHP ---
Same Day Surgery H&P Indication for Procedure/HPI DATE OF PROCEDURE: June 29, 2022 CHIEF COMPLAINT/INDICATIONFOR SURGICAL PROCEDURE: Bloating PREOP DIAGNOSIS: Biliary dysfunction PLANNED PROCEDURE: Operation Date: 06/29/22 08:05 Proposed Procedures p Laparoscopic Cholecystectomy 78735,R10.11(Not Applicable) - Reilly Ziegler MD 04/12/2022 This is a pleasant 37 years old female patient gives history of fatty dyspepsia associated with sharp right upper quadrant abdominal and epigastric pain that gets worse with greasy food and better with pain medication.? Had an ultrasound of the gallbladder that showed no stones.? At an outside facility.? Patient did not have a HIDA scan yet. Interim history 06/10/2022 Office visit today via telehealth Patient undergone a HIDA scan per my request that did show 1.? Normal HIDA scan. 2.? Normal gallbladder ejection fraction. ? In spite of the normal HIDA scan report,patient reports history of bloating and nausea with the HIDA scan and diarrhea when she went home.? Which indicates biliary dysfunction.? Patient is on chronic warfarin therapy for artificial mitral valve.? And she goes to the warfarin clinic in [facility].? She had procedures before where she had to be bridged by Lovenox therapy. No available recent blood work. 06/29/2022 Patient comes today for elective laparoscopic cholecystectomy and a repeat INR shows 1.0, patient reports that her cardiology team is managing her Lovenox bridge because of her mitral artificial valve and last Lovenox dose was given yesterday morning. ROS All systems have been reviewed negative except as for the above or per problem list. Medications/Allergies* Home Medications Medication Instructions Recorded Confirmed Type multivitamin with minerals 1 tab PO DAILY 04/23/20 06/28/22 History (Multiple Vitamin-Minerals tablet) warfarin 5 mg tablet 10 mg PO DAILY 04/23/20 06/28/22 History albuterol sulfate 90 mcg/actuation 2 puff inhalation Q4-5H shortness 06/29/22 06/29/22 History aerosol inhaler (ProAir HFA) of breath alprazolam 0.25 mg tablet (Xanax) 0.25 mg PO DAILY PRN Anxiety 06/29/22 06/29/22 History enoxaparin 80 mg/0.8 mL 80 mg SUBCUT BID 06/29/22 06/29/22 History subcutaneous syringe (Lovenox) Allergies/Adverse Reactions Allergy/AdvReac Type Severity Reaction Status Date / Time No Known Allergies Allergy Verified 06/29/22 07:48 Current Medications: Generic Name Dose Route Start Last Admin Trade Name Radha PRN Reason Stop Dose Admin Sodium Chloride 1,000 mls @ 30 mls/hr 06/29/22 06:45 06/29/22 07:04 Sodium Chloride 0.9% IV 06/30/22 06:44 30 mls/hr .Q24H FLORES Administration Pertinent History/Comorbid Conditions* Medical History (Updated 06/13/22 @ 08:50 by Reilly Ziegler MD) Gross hematuria Hepatitis C Overweight (BMI 25.0-29.9) Recurrent UTI Right renal stone Subacute bacterial endocarditis Surgical History (Updated 04/23/20 @ 17:10 by Erik Polk DO) History of History of mitral valve prosthesis [employer]. Octavio's mechanical valve S/P endometrial ablation Family History (Updated 05/05/20 @ 09:09 by ALEJANDRO Mejia) Diabetes Social History Smoking and tobacco status: former smoker Second hand smoke exposure: No Smoking risk assessment/counseling performed?: Yes Alcohol intake: current Alcohol intake frequency: few times a month Desire information about alcohol rehabilitation?: No Counseling given: No Desire information about substance/drug rehabilitation?: No Counseling given: No Adopted: No Caregiver/support person: No Lives independently: No Household members: spouse Housing: House Marital status: Number of children: 3 service: No Current occupational status: employed Current occupation: [employer] History of recent travel: No Current gender identity: Female Pertinent Exam Findings alert, oriented x 3, clear to auscultation bilaterally, regular rate & rhythm (Artificial mitral valve is heard) and procedure specific exam findings (Abdominal exam nontender nondistended soft) Recommendations Surgery/Procedure today (Laparoscopic cholecystectomy possible open.) Coding Level of Care Code Acute Electric Track Switch Maintainer for Kris Matson
[2022-06-29] MEDS: ampicillin-sulbactam 3 GM in sodium chloride 0.9% (plus) 50 ML IV (08:15)
[2022-06-29] MEDS: heparin 5,000 unit/mL INJ 1 mL 5000 UNIT INJECTION (08:39)
[2022-06-29] MEDS: lidocaine 2% INJ 20 mL INJECTION (09:27)
--- NOTE | 2022-06-29 09:43 | P.OP_ITS ---
Operative Report Date of procedure: June 29, 2022 Pre-op diagnosis: Preop Diagnosis Biliary dysfunction Post-op diagnosis: Chronic cholecystitis Post-op findings: Concern for pathological changes of the head of the pancreas questionable mass like structure Procedure done: Laparoscopic cholecystectomy Implants: Small pieces of Surgicel at the gallbladder fossa Specimens removed/disposition: Gallbladder and contents Surgeon: Reilly Ziegler MD Awning Craftsman: Surgical jose alberto Johnson Circulating nurse Sue Anesthesia: General (non morse intercept technician Eben Hansen) Estimated blood loss (mL): 10 IV fluids (mL): 1,200 Procedure: Patient was identified in the holding area and taken back to the operative suite, placed in supine position intubated by anesthesia . Time-out was done verifying the patient's name/date of /planned procedure and destination after the procedure, all were in agreement. SCDs confirmed to be functioning, preoperative antibiotics administered per protocol, and beta maryann protocol was confirmed. 2000 units of heparin subcu were given prior to surgery. Patient was appropriately secured to the table, footboard was applied to the OR table, before prep and drape anesthesia was asked to tilt the table back and forth to make sure that the patient is appropriately secured and she was. Prep and drape of the abdomen was done under the usual sterile technique, followed by that infraumbilical skin incision,skin incision was done by a 15 blade knife, and stay sutures were applied to the fascia and Schumacher trocar technique was used to enter the abdominal without injuring any abdominal viscera, started by low flow gas insufflation followed by a high flow, started with a 10 mm laparoscope and under direct vision there was no evidence of any injuries, the scope then switched to a 30? ,10 millimeter scope and under direct visualization 5 millimeter trocar was inserted in the epigastric region followed by two 5 mm trocars were inserted in the right upper quadrant that was done after injection of local lidocaine 2% at all incision sites. Gallbladder showed chronic cholecystitis and incidental finding of masslike structure of the pancreatic head. No biopsies were not obtained at this point would prefer to obtain further work-up down the road prior to any biopsies.. Patient was then positioned in the head up and tilted to the left. Ratcheted forceps were introduced into the lateral most 5mm port and was applied unto the fundus of the gallbladder cephalad and using Bullet forceps the infundibulum of the gallbladder was retracted laterally. Using [place] forceps then L-hook cautery to dissect the peritoneum overlying the Calot's triangle which was then opened medially and laterally until the cystic duct and the cystic artery were skeletonized. Dissection was carried along the body of the gallbladder and after ensuring critical view of safety was identfied. Cystic duct and cystic artery where seen connected to the gallbladder. Clips were applied on the cystic duct towards the common bile duct 1 towards the gal lbladder then divided is in sharp scissors, 2 clips were then applied onto the cystic artery and 1 towards the gallbladder and divided by sharp scissors. Dissection was then carried along of the gallbladder from the gallbladder fossa using cautery as well as sharp dissection with heat energy. The gallbladder then was dissected out from the gallbladder fossa totally , cholecystectomy was then achieved and was placed in an Endo Catch bag and then retrieved from the Schumacher trocar site under direct visualization using a 5 mm 30? scope through the epigastric trocar, specimen was then passed to the circulating nurse to go for permanent pathology,irrigation and hemostasis was done to the gallbladder fossa after hemostasis was secured, final survey laparoscopy was done that showed no injuries. Suction irrigation was obtained. The Infraumbilical fascial defect was then closed using interrupted number one PDS sutures using a fascial closure device ;Arsalan Jimenez under direct visualization following that Gas was allowed to deflate,Trocars were then taken out under direct vision there was no evidence of bleeding. Specimen was passed to the circulating nurse for permanent pathology. No drains were placed and the Infraumbilical incision as well as all trocar sites were closed by 3/0 Vicryl followed by 4-0 Monocryl to approximate the skin edges of the incisions , dressing was applied in the form of surical glue and the patient patient got extubated and was taken to recovery area in a stable condition. Count of sponges,needles and instruments were completed at the end of the procedure I was present for the whole entire procedure. Follow-up on recommendations per cardiac services to resume blood thinners. From surgical standpoint of view patient can resume Lovenox tonight.
[2022-06-29] MEDS: HYDROmorphone 1 mg/mL INJ 1 mL 0.5 MG IVP (10:06)
[2022-06-29] MEDS: HYDROcodone-acetaminophen 5-325 mg Tablet 1 TAB PO (11:01)
--- NOTE | 2022-06-29 16:28 | ANE.PACU2 ---
Inpatient post-anesthesia follow up: Airway intact: Yes Vital signs: Temperature 97.0 F Pulse Rate 57 Respiratory Rate 18 Blood Pressure 166/63 Pulse Oximetry 100 Oxygen Delivery Me thod Room Air Oxygen Flow Rate 6 Fraction of Inspir ed Oxygen Hydration adequate: Yes Nausea and vomiting: No Pain level: 1 Mental status: Baseline
== END 2022-06-29 11:26 | disposition home or self-care (01) ==
PROVIDERS: PCP Nurse Practitioner Family; Visit Provider Surgery
PROC: 0FT44ZZ Resection of Gallbladder, Percutaneous Endoscopic Approach (ICD-10-PCS; CPT 47562; principal; 2022-06-29 07:55)
DX: K80.10 Calculus of gallbladder with chronic cholecystitis without obstruction (principal); J45.909 Unspecified asthma, uncomplicated; Z79.01 Long term (current) use of anticoagulants; Z86.19 Personal history of other infectious and parasitic diseases; Z87.891 Personal history of nicotine dependence
CPT/HCPCS: 47562; 36415; 85610; 88304; J0131; J0295; J1100; J1170; J1644; J2405; J2704; J2710; J3010; J3490; J7030

== ENCOUNTER 2022-08-13 14:08 | Outpatient (CLI) | payer MEDICAID, SELFPAY ==
--- NOTE | 2022-08-13 | CT_ITS ---
WS: [id number] CT ABDOMEN CONTRAST TECHNIQUE: Contrast enhanced CT of the abdomen with coronal and sagittal reformatted images. CLINICAL INFORMATION: CYST ON PANCREAS COMPARISON: None. DLP: 594.[address] scans at [facility] use at least one of these dose optimization techniques: automated e xposure control; mA and/or kV adjustment per patient size (includes targeted exams where dose is matc hed to clinical indication); or iterative reconstruction. FINDINGS: Mild diffuse fatty infiltration liver. Prior cholecystectomy. Normal portal vein and splenic vein. Ad renal glands are normal. Normal renal parenchymal enhancement. No hydronephrosis. Calculus in the RIG HT proximal ureter measuring 5 mm. Mild dilatation RIGHT renal pelvis. No perinephric stranding. Dist al ureter is not included on this abdomen CT. Normal pancreatic parenchymal enhancement. No visualized pancreatic mass or lesion. No pancreatic daina catalino dilatation. Normal portal vein and splenic vein. Normal caliber abdominal aorta. Celiac and SMA a re patent. Fat-containing umbilical hernia. Partially included LEFT lower lobe opacity measuring 12 mm incomplet abigail included on this examination. This can be further evaluated chest CT. CT/CT abdomen w con* [id number] IMPRESSION: 1. 5 mm renal calculus in RIGHT proximal ureter was present in 2019. This is m igrated slightly distally into the proximal ureter from the UPJ. Only mild dila tation of the RIGHT renal pelvis slightly progressed. No inflammatory stranding . 2. Mild diffuse fatty infiltration liver. Cholecystectomy clips. 3. Partially visualized ovoid nodule LEFT lower lobe measuring 12 mm not compl etely included on this examination. This can be followed up with chest CT. 4. No evidence of pancreatic mass or lesion visualized. Normal pancreatic par enchymal enhancement. Pancreas can be further evaluated with MRI pancreas for b moiz anatomic detail if indicated.
[2022-08-13] MEDS: iohexol 350 mg/mL 500 mL Btl (per mL) IV (14:42)
== END 2022-08-13 14:09 | disposition home or self-care (01) ==
LOC: RAD 14:14
PROVIDERS: PCP Nurse Practitioner Family; Visit Provider Surgery
DX: K86.2 Cyst of pancreas (principal); N20.0 Calculus of kidney; K76.0 Fatty (change of) liver, not elsewhere classified
CPT/HCPCS: 74160; Q9967

== ENCOUNTER 2022-09-29 07:07 | Outpatient (CLI) | payer MEDICAID, SELFPAY ==
--- NOTE | 2022-09-29 07:20 | MR_ITS ---
WS: [id number] MRI OF THE ABDOMEN WITHOUT AND WITH GADOLINIUM ENHANCEMENT. INDICATION: Possible pancreatic head mass seen during recent gallbladder removal surgery TECHNIQUE: Axial 2-D fiesta, axial T2 fat sat, dual Echo, axial T1 fat sat, and multiplanar post gado linium imaging with fat saturation technique FINDINGS: Liver is normal in appearance. Mild hepatomegaly. Common bile duct appears normal. Cholecys tectomy clips. No fluid collections in the cholecystectomy bed. Normal portal vein and splenic vein. No visualized pancreatic mass or lesion. Normal pancreatic parenchymal enhancement. Adrenal glands are normal. Normal spleen. Normal caliber upper abdominal aorta. Celiac and SMA are pa tent. No significant hydronephrosis in either kidney today. Partially visualized normal renal parench ymal enhancement. Normal GE junction. No other suspicious findings. MR/MR abdomen wo/w con* [id number] IMPRESSION: Some images degraded by breathing artifact. 1. No definite pancreatic mass or lesion visualized today. Considering history of mass seen during surgery consider further evaluation with ERCP. 2. No intrahepatic biliary dilatation. 3. No other acute findings.
[2022-09-29] MEDS: gadobenate dimeglumine 20 mL vial IV (08:01)
== END 2022-09-29 07:08 | disposition home or self-care (01) ==
LOC: RAD 07:08
PROVIDERS: PCP Nurse Practitioner Family; Visit Provider Surgery
DX: K86.89 Other specified diseases of pancreas (principal)
CPT/HCPCS: 74183; A9577

== ENCOUNTER 2023-02-04 13:34 | Outpatient (CLI) | payer MEDICAID, SELFPAY ==
--- NOTE | 2023-02-04 13:44 | CT_ITS ---
WS: [id number] CT chest wo con [id number] HISTORY: SOLITARY PULMONARY NODULE TECHNIQUE: Axial imaging performed through the thorax. Coronal and sagittal reformats are submitted. All CT scans at [facility] use at least one of these dose optimization techniques: automated exposure control; mA and/or kV adjustment per patient size (includes targeted exams where dose is mat ched to clinical indication); or iterative reconstruction. CONTRAST: None DLP: 202.43 mGy.cm COMPARISON: CT 08/13/2022 Lungs and central airway: Well-circumscribed variable density nodule in the LEFT lower lobe abuts the pleura. Nodule measures 19 x 14 mm. Increasing density centrally suggesting development of calcifica tion. No additional mass or nodule. No pneumonia. Pleura: Normal. No pleural effusion. Heart and pericardium: Prior mitral valve replacement. Heart size is slightly enlarged. Mediastinum and berto: No mediastinum or hilar adenopathy. Vessels: Normal size aortic and pulmonary artery. No coronary artery calcifications. Chest wall and lower neck: No soft tissue masses. Upper abdomen: Prior cholecystectomy. No adrenal mass. Nonobstructing 3 mm calcification upper pole R IGHT kidney. Osseous structures: Prior median sternotomy. CT/CT chest wo con [id number] IMPRESSION: 1. Well-circumscribed, variable density nodule LEFT lower lobe measures 19 x 1 4 mm. This may be partially calcified centrally. This is likely a benign granul daryl. As this is not typical for a granuloma recommend [address] follow-u p. This will need to be evaluated for long-term stability. 2. No adenopathy. 3. Prior median sternotomy. 4. Prior cholecystectomy.
== END 2023-02-04 13:35 | disposition home or self-care (01) ==
PROVIDERS: PCP Nurse Practitioner Family; Visit Provider Internal Medicine
DX: R91.1 Solitary pulmonary nodule (principal)
CPT/HCPCS: 71250

== ENCOUNTER → 2023-03-11 09:42 | Outpatient (BNVA) | payer MEDICAID, SELFPAY | PROVIDERS: PCP Nurse Practitioner Family; Visit Provider Nurse Practitioner Family | DX: E66.9 Obesity, unspecified (principal); E66.3 Overweight; K86.89 Other specified diseases of pancreas; Z95.2 Presence of prosthetic heart valve; R91.1 Solitary pulmonary nodule; E88.81 Metabolic syndrome and other insulin resistance | CPT/HCPCS: 80053 ==

== ENCOUNTER 2023-09-02 10:56 | Outpatient (CLI) | payer BC, MEDICAID, SELFPAY | END 2023-09-02 10:57 | disposition home or self-care (01) | LOC: RAD 10:57 | PROVIDERS: PCP Nurse Practitioner Family; Visit Provider Nurse Practitioner Family | DX: Z95.2 Presence of prosthetic heart valve (principal); I07.1 Rheumatic tricuspid insufficiency; R07.9 Chest pain, unspecified; Z79.01 Long term (current) use of anticoagulants | CPT/HCPCS: 93306 ==

== ENCOUNTER → 2023-09-16 12:39 | Outpatient (BNVA) | payer BC, MEDICAID, SELFPAY | PROVIDERS: PCP Nurse Practitioner Family; Visit Provider Nurse Practitioner Women's Health | DX: R10.2 Pelvic and perineal pain (principal); N83.202 Unspecified ovarian cyst, left side; I86.8 Varicose veins of other specified sites | CPT/HCPCS: 76830 ==

== ENCOUNTER 2023-12-08 07:08 | Outpatient (CLI) | payer BC, MEDICAID, SELFPAY ==
[2023-12-08 07:25] VITALS: PULSE 65; RESP 18; O2SAT 99
[2023-12-08] MEDS: albuterol 2.5 mg/3 mL Neb INHALATION (07:25)
[2023-12-08 07:30] VITALS: PULSE 68
== END 2023-12-08 07:09 | disposition home or self-care (01) ==
LOC: RT 07:08
PROVIDERS: PCP Nurse Practitioner Family; Visit Provider Internal Medicine Critical Care Medicine
DX: R91.1 Solitary pulmonary nodule (principal); J45.20 Mild intermittent asthma, uncomplicated
CPT/HCPCS: 94060; 94726; 94729

== ENCOUNTER 2024-11-07 09:15 | Oncology outpatient (recurring) (ONCR) | payer BC, MEDICAID, SELFPAY ==
[2024-10-16 14:53] LABS: Basophils % 0.4 %; Eosinophils # 0.1 10^3/uL (0.0-0.8); Eosinophils % 0.9 %; Hematocrit 39.8 % (36-47); Lymphocytes # 1.9 10^3/uL (0.8-4.8); Lymphocytes % 34.6 %; Mean Corpuscular HGB Conc 32.7 g/dL (30-55); Mean Corpuscular Hemoglobin 28.6 pg (27-33); Mean Corpuscular Volume 87.5 fl (85-98); Mean Platelet Volume 11.9 fL (7.4-10.4); Monocytes # 0.3 10^3/uL (0.2-0.9); Monocytes % 5.8 %; Neutrophils # 3.12 10^3/uL (1.8-7.7); Neutrophils % 57.9 %; Nucleated Red Blood Cells % 0 %; Platelet Count 157 10^3/cmm (157-399); Red Blood Count 4.55 10^6/uL (3.85-5.65); Red Cell Distribution Width 13.5 % (12.1-15.1); White Blood Count 5.38 10^3/uL (3.29-11.43)
[2024-10-16 15:21] LABS: Alanine Aminotransferase 20 U/L (0-33); Albumin Level 4.2 g/dL (3.5-5.2); Alkaline Phosphatase 75 U/L (35-105); Anion Gap 11.7 (5-19); Aspartate Amino Transferase 22 U/L (0-32); Blood Urea Nitrogen 9 mg/dL (6-20); Calcium 9.2 mg/dL (8.5-10.5); Carbon Dioxide 26 mmol/L (22-29); Chloride 103 mmol/L (98-107); Globulin 2.9 g/dL (1.3-4.6); Glomerular Filtration Rate 80.7 mL/min (90-130); Glucose 92 mg/dL (65-115); Osmolality Calculated 282 mOsm/kg (285-295); Potassium 3.7 mmol/L (3.5-5.1); Sodium 137 mmol/L (136-145); Thyroid Stimulating Hormone 1.39 uIU/mL (0.27-4.20); Total Bilirubin 0.9 mg/dL (0.15-1.2); Total Protein 7.1 g/dL (6.6-8.7)
[2024-10-16 15:31] LABS: HIV 1 & 2 Antibody Non-Reactive (Non-Reactiv); HIV 1 & 2 Antigen Non-Reactive (Non-Reactiv)
[2024-10-16 15:54] LABS: Hepatitis A Antibody IgM Non-Reactive (Nonreactive); Hepatitis B Core AB, Total Non-Reactive (Nonreactive); Hepatitis B Surface AB 7.2 (11.5-1000); Hepatitis B Surface Antigen Non-Reactive (Nonreactive); Hepatitis C Virus Antibody Reactive (Nonreactive)
[2024-10-18 15:04] LABS: Anti-Nuclear Antibody Screen NEGATIVE (NEGATIVE)
[2024-10-19 14:40] LABS: HEP C RNA Viral Load Quant <1.18 NOT DETECTED Log IU/mL (NOT DETECTED); HEP C RNA Viral Load Quant <15 NOT DETECTED IU/mL (NOT DETECTED)
--- NOTE | 2024-11-07 09:15 | USR_ITS ---
PROCEDURE INFORMATION: Exam: US Abdomen Complete Exam date and time: 11/07/2024 9:17 AM Age: 39 years old Clinical indication: Condition or disease; Liver condition; Hepatitis; Not specified; Additional info: History of hepatitis TECHNIQUE: Imaging protocol: Real-time ultrasound of the abdomen with image documentation. Complete exam. COMPARISON: US gall bladder [id number] 04/23/2020 19:06 FINDINGS: Liver: Normal. No mass. Patent main portal vein with normal direction of flow. Gallbladder: The gallbladder has been surgically removed. Biliary ducts: Normal. No stones. No dilation. Pancreas: Visualized pancreas is unremarkable. Right kidney: Normal. No mass. No hydronephrosis. Left kidney: Normal. No mass. No hydronephrosis. Spleen: Normal. No splenomegaly. Aorta: Normal. No aneurysm. Inferior vena cava: Normal. US/US abdomen complete* [id number] IMPRESSION: No acute findings.
== END 2024-11-12 23:59 | disposition home or self-care (01) ==
LOC: RAD 11-08 → ONCMED 11-08 06:37
PROVIDERS: PCP Nurse Practitioner Family; Visit Provider Internal Medicine Medical Oncology
DX: Z53.9 Procedure and treatment not carried out, unspecified reason; K86.89 Other specified diseases of pancreas; R91.1 Solitary pulmonary nodule; Z86.19 Personal history of other infectious and parasitic diseases
CPT/HCPCS: 36415; 76700; 80053; 84443; 85025; 86038; 86705; 86706; 86709; 86803; 87340; 87522; 87806